=== PATIENT | female | born 1995 | race African-American/Black ===

== ENCOUNTER 2018-04-05 10:15 | Emergency (ER) | payer SELFPAY ==
[~2018-04-05] VITALS: Ht 160 cm; Wt 50.0 kg
[2018-04-05] MEDS ORDERED: ONDANSETRON HCL 4MG/2ML INJ IV STA (12:56)
[2018-04-05] MEDS ORDERED: MORPHINE SULFATE 4 MG/ML CPJ (NOT FOR IM USE) IV STA (12:56)
[2018-04-05 15:27] LABS: CLARITY URINE CLOUDY (CLEAR); COLOR URINE ORANGE (YELLOW); KETONES URINE NEGATIVE (NEGATIVE); LEUKOCYTE ESTERASE URINE 2+ (NEGATIVE); NITRITE URINE NEGATIVE (NEGATIVE); OCCULT BLOOD URINE 3+ (NEGATIVE); PH URINE 5.5 (4.5-8.0); PROTEIN URINE 1+ (NEGATIVE); SPECIFIC GRAVITY URINE 1.021 (1.005-1.030)
[2018-04-05 15:31] LABS: BASOPHILS % 1.1 % (0.0-2.0); EOSINOPHILS % 0.4 % (0.0-5.0); HEMATOCRIT. 34.3 % (36.0-48.0); HEMOGLOBIN. 11.5 g/dL (12.0-16.0); LYMPHOCYTES % 31.8 % (20.0-50.0); MEAN CORPUSCULAR HEMOGLOBIN 29.2 pg (28.0-32.0); MEAN CORPUSCULAR VOLUME 87.4 fL (81.0-99.0); MEAN PLATELET VOLUME 9.6 fl (7.4-10.4); MONOCYTES % 10.1 % (2.0-8.0); NEUTROPHILS % 56.6 % (40.0-76.0); PLATELET 258 x1000/uL (130-400); RED BLOOD CELL COUNT 3.92 mill/uL (4.2-5.4); RED CELL DISTRIBUTION WIDTH 14.3 % (11.6-14.6)
[2018-04-05 15:35] LABS: CHLORIDE 107 mEq/L (98-107); INR 1.1; PROTHROMBIN TIME 11.4 sec (9.1-11.1)
[2018-04-05 16:23] VITALS: BP 105/74
== END 2018-04-05 16:24 | disposition home or self-care (01) ==
LOC: ER 10:26
DX: R10.9 Unspecified abdominal pain (principal); Z88.3 Allergy status to other anti-infective agents
CPT/HCPCS: 36415; 76705; 80053; 81003; 81025; 83690; 85025; 85610; 87086; 96374; 96375; 99284; J2270; J2405